=== PATIENT | male | born 1950 | race Caucasian/White ===

== ENCOUNTER 2017-01-28 02:47 | Inpatient (IN) | payer OTHER ==
--- NOTE | ~2017-01-28 | CN ---
Consultation Report [facility] [address] [place]. [address] NAME: HEATHER MCNEAL : 54 STATUS : ADM IN [facility]#: [id number] AGE: 66 ADM/REG DATE : 01/28/17 MR#: [id number] REPORT SERV DATE: 01/28/17 DICTATED BY: DAYA RONQUILLO DATE: 01/28/17 REPORT STATUS : Draft TRANSCRIBED BY: MODL DATE: 01/28/17 CONSULTATION DATE OF CONSULTATION: 01/28/2017 REASON FOR CONSULTATION: Hydronephrosis. HISTORY OF PRESENT ILLNESS: Mr. Mcneal is a 66-year-old male, admitted with GI bleeding. He has a history of ulcers, which have bled and were have been treated with endoscopy in the past. Apparently, the source of this is NSAID use. On a CT scan performed at the outside hospital, he has significant right hydronephrosis. He denies right flank pain. He denies hematuria. He does not smoke. He has no family history of genitourinary malignancy. His renal function was normal at 0.9 for his creatinine. Apparently, he has a very significant pulmonary and cardiac history, which makes any sort of procedure or even getting a CT scan a life-threatening event. I have been asked to consult on his hydronephrosis. PAST MEDICAL HISTORY: Hypertension, end-stage COPD, history of gastrointestinal bleed, colonic polyps, diverticulosis, diverticulitis, basal cell carcinoma, coronary artery disease, Schatzki ring, color blindness. PAST SURGICAL HISTORY: Nasal reconstruction, right hand surgery, multiple GI endoscopies. FAMILY HISTORY: No genitourinary history. SOCIAL HISTORY: He drinks some. Does not currently smoke. He is a past smoker. No illegal drugs. ALLERGIES: SULFA. MEDICATIONS: Reviewed and listed in the chart. REVIEW OF SYSTEMS: A 12-point review of systems was performed. Pertinent positives are listed in the HPI. PHYSICAL EXAMINATION: VITAL SIGNS: Temperature 98.2, pulse is in the 80s, blood pressure is 161/90, saturating 91% on room air. GENERAL: He is in no acute distress. HEENT: His head is normocephalic and atraumatic. LUNGS: Breathing is nonlabored. He is not in respiratory distress. CARDIAC: Pulse is regular in rate and rhythm. ABDOMEN: Soft, nontender, nondistended. He has no CVA tenderness. : He has normal external genitalia. EXTREMITIES: No cyanosis or edema. Consultation Report [address] [facility] [place]. [address] NAME: HEATHER MCNEAL : 54 STATUS : ADM IN PAT#: [id number] AGE: 66 ADM/REG DATE : 01/28/17 MR#: [id number] REPORT SERV DATE: 01/28/17 DICTATED BY: DAYA RONQUILLO DATE: 01/28/17 REPORT STATUS : Draft TRANSCRIBED BY: MODL DATE: 01/28/17 NEUROLOGIC: He is alert and oriented x3. LABORATORY DATA: White count 5.6, hemoglobin is 12.5. Creatinine is 0.8. IMAGING: CT scan performed at the outside hospital has the report available, there is right hydronephrosis. ASSESSMENT AND PLAN: Mr. Mcneal has asymptomatic severe right hydronephrosis and preserved renal function. Apparently, per his report, he is unfit to undergo any sort of procedure. Repeating CT scan is also associated with near life-threatening cardiopulmonary collapse. At this point, we do not need to do anything urgent as he certainly has normal renal function and is not infected. Recommend trying to get the actual CT disk from the outside hospital, so we can have it loaded up to our system. Ultimately, I will follow up with him as an outpatient upon discharge to determine if this is something worth treatment. Unfortunately, given his comorbidities, I think treatment will probably just be conservative management. Please call if further questions. MARLY/YON Daya Ronquillo MD / [id number] CC: Daya Ronquillo MD
--- NOTE | ~2017-01-28 | DS ---
Discharge Summary [address] [place]. [address] NAME: HEATHER CHARLES : 54 STATUS : DIS IN PAT#: [id number] AGE: 66 ADM/REG DATE : 01/28/17 MR#: [id number] REPORT SERV DATE: 01/29/17 DICTATED BY: MIN CERDA DATE: 01/29/17 REPORT STATUS : Draft TRANSCRIBED BY: MODL DATE: 01/29/17 ADMISSION DATE: 01/28/2017 DISCHARGE DATE: 01/29/2017 PROCEDURES DONE: 1. 01/28/2017, chest x-ray: Mild bibasilar atelectasis. Otherwise, no acute cardiopulmonary identified. 2. 01/29/2016, operative report by Dr. Infante: Upper GI endoscopy. Findings: Esophagus was normal. Patchy moderate inflammation characterized by erosions and erythema was found in the entire examined stomach. Biopsies were taken with cold forceps for histology. Verification of patient identification was done. Estimated blood loss was minimal. Cardiac and gastric fundus were normal and retroflexion. Patchy mild inflammation characterized by erythema was found in the duodenal bulb. Examination of the duodenum was normal. Impressions: Normal esophagus. Gastritis. Biopsied. Duodenitis. 3. Operative report by Dr. Gee, procedure done colonoscopy. Findings: Perianal exam was abnormal. Findings include skin tags. Internal hemorrhoids were found during retroflexion that were medium size. Diverticula were found in the sigmoid colon and in the descending colon. Terminal ileum appeared normal. Two sessile polyps were found in the sigmoid colon. Polyps were small in size. Polyps were removed with cold biopsy forceps. Resection and retrieval were complete. Impressions: Preanal skin tags found in the perianal exam. Internal hemorrhoids. Diverticulosis in the sigmoid and in the descending colon. Examined portion of the ileum was normal. Two small polyps in the sigmoid colon. Resected and retrieved. Repeat colonoscopy for surveillance based on pathology results. CONSULTS: By nurse practitionerLeo. REASON FOR ADMISSION: GI bleed. HISTORY OF PRESENT ILLNESS: 66-year-old white male with past medical history of multiple admissions for GI bleed secondary to duodenal ulcers, COPD, hypertension, coronary artery disease with prior DE, active tobacco use, active alcohol use, diverticulosis, presenting with GI bleed. The patient was admitted for further evaluation of GI bleed. The patient also was seen by Urology secondary to severe right hydronephrosis. GI did a colonoscopy and an EGD, which was normal. Biopsies were taken in the stomach. The patient will have to follow up with Dr. Manzo for six week followup. In addition, the patient does have a right sided hydronephrosis. Urology was consulted. The patient does have a history of cardiopulmonary arrest while on sedation. The patient is not a medical candidate for any procedures at this time and the patient is advised to follow up as an outpatient. The patient is fully aware that he is a high risk for any surgical procedures including a bypass which is needed. Therefore, the patient is fully aware that his limitation of any intervention is only in life and situations. DISPOSITION: The patient is feeling fine. No complaints. Discharge Summary [address] [place]. [address] NAME: HEATHER CHARLES : 54 STATUS : DIS IN PAT#: [id number] AGE: 66 ADM/REG DATE : 01/28/17 MR#: [id number] REPORT SERV DATE: 01/29/17 DICTATED BY: MIN CERDA DATE: 01/29/17 REPORT STATUS : Draft TRANSCRIBED BY: YON DATE: 01/29/17 ACTIVITIES: As tolerated. DIET: Cardiac. INSTRUCTION UPON DISCHARGE: 1. The patient to follow up with Dr. Manzo in 6 weeks. 2. The patient to follow up with PMD within two weeks' time. MEDICATION UPON DISCHARGE: 1. Protonix 40 mg p.o. daily. 2. Isosorbide mononitrate 10 mg p.o. b.i.d. 3. Lisinopril 20 mg p.o. b.i.d. 4. Centrum one tab daily. 5. [place]-3 1000 mg p.o. daily. 6. Albuterol metered-dose inhaler 1 puff p.r.n. 7. Aspirin 81 mg p.o. daily. 8. Ventolin inhaler two puffs b.i.d. 9. Nitroglycerin sublingual. DIAGNOSES UPON DISCHARGE: 1. Melena, hematochezia secondary to unknown etiology. EGD and colonoscopy were negative for active bleed. 2. History of duodenal ulcer. 3. Anemia secondary to history of duodenal ulcer. 4. Right hydronephrosis. 5. Chronic obstructive pulmonary disease. 6. Coronary artery disease. 7. Hypertension. FBJ/MODL Min Cerda MD / [id number] CC: MD Tiarra Thomas Angela C
--- NOTE | ~2017-01-28 | EGD ---
EGD REPORT [facility] [address] [place]. [address] NAME: HEATHER MCNEAL MIGUEL ANGEL : 54 STATUS : ADM IN PAT#: [id number] AGE: 66 ADM/REG DATE : 01/28/17 MR#: [id number] REPORT SERV DATE: 01/29/17 DICTATED BY: JUDSON GEE DATE: 01/29/17 REPORT STATUS : Draft TRANSCRIBED BY: [facility] DATE: 01/29/17 Endoscopy Center Patient Name: Heather Mcneal Date of : 1950 Attending MD: JUDSON GEE MD Procedure Date No Time: 01/29/2017 Procedure: Colonoscopy Indications: Melena (with negative EGD) Referring MD: Shannan Mayen MD Medicines: See the Anesthesia note for documentation of the administered medications Complications: No immediate complications. Procedure: Pre-Anesthesia Assessment: - ASA Grade Assessment: IV - A patient with severe systemic disease that is a constant threat to life. After I obtained informed consent, the scope was passed under direct vision. Throughout the procedure, the patient's blood pressure, pulse, and oxygen saturations were monitored continuously. The PCF [id number] was introduced through the anus and advanced to the terminal ileum, with identification of the appendiceal orifice and IC valve. The colonoscopy was performed without difficulty. The patient tolerated the procedure well. The quality of the bowel preparation was adequate. NO BLOOD IN COLON. MIN SCATTERED BROWN FECAL DEBRIS. Findings: The perianal exam was abnormal. Findings include skin tags. Internal hemorrhoids were found during retroflexion and were medium-sized. Diverticula were found in the sigmoid colon and in the descending colon. The terminal ileum appeared normal. Two sessile polyps were found in the sigmoid colon. The polyps were small in size. These polyps were removed with a cold biopsy forceps. Resection and retrieval were complete. Impression: - Perianal skin tags found on perianal exam. - Internal hemorrhoids. - Diverticulosis in the sigmoid colon and in the descending colon. - The examined portion of the ileum was normal. - Two small polyps in the sigmoid colon. Resected and retrieved. Recommendation: - Repeat colonoscopy for surveillance based on pathology EGD REPORT [address] [address] NAME: HEATHER MCNEAL : 54 STATUS : ADM IN [facility]#: [id number] AGE: 66 ADM/REG DATE : 01/28/17 MR#: [id number] REPORT SERV DATE: 01/29/17 DICTATED BY: JUDSON GEE DATE: 01/29/17 REPORT STATUS : Draft TRANSCRIBED BY: [employer] DATE: 01/29/17 results. - [facility]. - Follow up with Dr Schreiber in 6 weeks. Will sign off. Procedure Code(s): --- Professional --- 12716, Colonoscopy, flexible, proximal to splenic flexure; with biopsy, single or multiple Diagnosis Code(s): --- Professional --- K64.4, Residual hemorrhoidal skin tags K64.8, Other hemorrhoids K57.30, Diverticulosis of large intestine without perforation or abscess without bleeding D12.5, Benign neoplasm of sigmoid colon K92.1, Melena CPT copyright 2013 [employer]. All rights reserved. The codes documented in this report are preliminary and upon medical insurance coder review may be revised to meet current compliance requirements. Judson Gee MD JUDSON GEE MD 01/29/2017 8:19 AM This report has been signed electronically. Number of Addenda: 0 Note Initiated On: 01/29/2017 7:37 AM Scope Withdrawal Time 0 hours 12 minutes 26 seconds
--- NOTE | ~2017-01-28 | HP ---
History And Physical [id number] [facility] [place]. [address] NAME: HEATHER MCNEAL : 54 STATUS : ADM IN [facility]#: [id number] AGE: 66 ADM/REG DATE : 01/28/17 MR#: [id number] REPORT SERV DATE: 01/28/17 DICTATED BY: SAI NIETO DATE: 01/28/17 REPORT STATUS : Draft TRANSCRIBED BY: MODCarlos DATE: 01/28/17 DATE OF ADMISSION: 01/28/2017 For an admission, transferred from [facility] Emergency Department. CHIEF COMPLAINT: GI bleed. HISTORY OF PRESENT ILLNESS: Mr. Mcneal is a 66-year-old gentleman with a prior history of multiple admissions for GI bleed secondary to duodenal ulcers as well as history of diverticulosis, who presented to [facility] Emergency Department earlier on the evening of the with a three-day history of melena and hematochezia. The patient states he first started to notice some dark-colored stools on Tuesday. On Tuesday, he noted oz-black stools and on , his stools and changed color to straight maroon-colored bloody bowel movements. The patient endorses some right lower quadrant abdominal pain with associated nausea. The patient also states that he has been feeling weak and dizzy for the past few days. He does drink alcohol on a daily basis, approximately three beers daily, as well as takes an aspirin 81 mg daily, but denies any NSAID use, BC Powder or Goody Powder use, recent troubles with acid reflux or heartburn, or any other blood thinners. The patient also has multiple complaints including some subjective fevers and chills over the past week, as well as intermittent episodes of substernal chest pain as well as shortness of breath and dyspnea on exertion. The patient has had two admissions in the last few years for GI bleed. All thought to be secondary to a bleeding duodenal ulcer, most recent being in 2014 for admission here, which required approximately three units of packed red blood cell transfusion. Initial evaluation at [facility] Emergency Department noted for a hemoglobin 14.5. Vital signs were hemodynamically stable. CT of the abdomen and pelvis was checked, which showed diverticulosis without any evidence of diverticulitis, but did show severe right-sided hydronephrosis. The patient was started on Protonix, given Levaquin and Flagyl as well as IV fluids and transferred to [facility] for higher level of care. COMPREHENSIVE REVIEW OF SYSTEMS: Otherwise negative, unless listed in history of present illness. PAST MEDICAL HISTORY: 1. COPD, not on any home oxygen. 2. Hypertension. 3. History of coronary artery disease with prior myocardial infarction. 4. Active tobacco abuse. 5. Active alcohol abuse. 6. Prior history of GI bleed secondary to duodenal ulcer. 7. Diverticulosis. History And Physical [address] [address] NAME: HEATHER MCNEAL : [birth year] STATUS : ADM IN PAT#: [id number] AGE: 66 ADM/REG DATE : 01/28/17 MR#: [id number] REPORT SERV DATE: 01/28/17 DICTATED BY: SAI NIETO DATE: 01/28/17 REPORT STATUS : Draft TRANSCRIBED BY: YON DATE: 01/28/17 SURGICAL HISTORY: 1. Right hand surgery. 2. Basal cell carcinoma of the nose, resection and nasal reconstruction. ALLERGIES: SULFA DRUGS. HOME MEDICATIONS: 1. Ventolin one puff inhalation b.i.d. 2. Proventil one nebulization p.r.n. 3. Aspirin 81 mg daily. 4. Isosorbide mononitrate 10 mg b.i.d. 5. Lisinopril 20 mg b.i.d. 6. Centrum multivitamin one tab daily. 7. Nitroglycerin 0.4 mg sublingual p.r.n. 8. [place]-3 fatty acid. 9. Fish oil 1 g daily. SOCIAL HISTORY: He does smoke about a half pack per day. He drinks about three beers daily. Denies any illicits. FAMILY MEDICAL HISTORY: Mother with history of stomach cancer. Father with diabetes, hypertension, coronary artery disease. Siblings, otherwise healthy. LABS AND IMAGING: All obtained from [facility] Emergency Department: 1. White count 8.3, hemoglobin is 14.5, hematocrit is 42.1, platelets 192. INR 1.0. 2. Sodium is 136, potassium 4.8, chloride 98, carbon dioxide 27, BUN 24, creatinine 0.83, glucose is 145, calcium is 10.1, protein is 7.3. Albumin is 4.4, bilirubin is 0.5, ALT is 18, AST 26. 3. Lipase is 28. 4. Lactic acid is 1.0. 5. CT scan of the abdomen and pelvis shows severe right-sided hydronephrosis at the level of the UPJ, as well as diverticulosis, but otherwise no acute abdominopelvic pathology. PHYSICAL EXAMINATION: VITAL SIGNS: Temperature is 98.2 degrees Fahrenheit, pulse is 85, respirations 18, saturating 91% on room air, blood pressure is 161/90. GENERAL: The patient is awake, alert, and in no acute distress. Resting comfortably in bed. He is a chronically ill-appearing, elderly male who appears older than stated age. HEENT: Atraumatic and normocephalic. Moist mucous membranes. Pupils are equal, round, and reactive to light and accommodation. Extraocular eye movements are intact. No scleral icterus. NECK: No jugular venous distention. No carotid bruits. CARDIAC: Regular rate and rhythm. No murmurs or gallops. Normal S1, S2. LUNGS: Clear to auscultation bilaterally. No wheezes, rhonchi, or crackles. ABDOMEN: Soft, nontender, nondistended, with good bowel sounds. No rebound, guarding, or History And Physical [address] [address] NAME: HEATHER MCNEAL : 54 STATUS : ADM IN [facility]#: [id number] AGE: 66 ADM/REG DATE : 01/28/17 MR#: [id number] REPORT SERV DATE: 01/28/17 DICTATED BY: SAI NIETO DATE: 01/28/17 REPORT STATUS : Draft TRANSCRIBED BY: MOD DATE: 01/28/17 rigidity. EXTREMITIES: Warm and well perfused. No cyanosis, clubbing, or edema. SKIN: Warm and dry. PSYCH: Affect is appropriate. NEURO: Alert and oriented x3. Cranial nerves 2 through 12 are grossly intact. Speech is normal. Gait is not assessed. ASSESSMENT AND PLAN: Mr. Mcneal 66-year-old gentleman with a prior history of peptic ulcer disease, specifically duodenal ulcers who presents with a three-day history of melena which has since progressed to oz hematochezia and maroon-colored stools. PROBLEM LIST: 1. GI bleed. 2. Severe right-sided hydronephrosis. 3. COPD. 4. Chest pain. 5. Shortness of breath. 6. Hypertension. 7. History of GI bleed with a history of duodenal ulcers. PLAN: 1. GI bleed. The patient's description of melena with conversion to oz hematochezia, maroon-colored stools concerning for upper GI source, which is likely brisk in nature consistent with duodenal source. The patient does have a history of diverticulosis as well. The patient's initial hemoglobin was 14.5. We will check q.6 hours hemoglobin and hematocrits. We will give additional 40 mg of IV Protonix and place on a drip. We will consult Gastroenterology, Dr. Schreiber, he saw the patient last time. We will transfuse for hemoglobin less than 7. 2. Right-sided hydronephrosis. We do not have any prior imaging to compare to. We will consult Urology for assistance. The patient's creatinine currently is within baseline. 3. COPD. The patient does have some very mild wheezing on exam here concerning for untreated COPD, although he is saturating well on room air. We will check a chest x- ray, place him on some DuoNebs. 4. Coronary artery disease with reports of chest pain. We will check a troponin level as well as an EKG. 5. Shortness of breath. Checking a chest x-ray. The patient is currently saturating well on room air. 6. DVT prophylaxis. TEDs and SCDs. CODE STATUS: The patient wishes to be full code. KHRIS/YON Sai Nieto MD History And Physical [address] [address] NAME: HEATHER MCNEAL : [birth year] STATUS : ADM IN [facility]#: [id number] AGE: 66 ADM/REG DATE : 01/28/17 MR#: [id number] REPORT SERV DATE: 01/28/17 DICTATED BY: SAI NIETO DATE: 01/28/17 REPORT STATUS : Draft TRANSCRIBED BY: YON DATE: 01/28/17 / [id number] CC: MD Dr. Gloria Thomas
--- NOTE | ~2017-01-28 | EGD ---
EGD REPORT [facility] [address] [address] NAME: HEATHER MCNEAL MIGUEL ANGEL : 54 STATUS : ADM IN PAT#: [id number] AGE: 66 ADM/REG DATE : 01/28/17 MR#: [id number] REPORT SERV DATE: 01/28/17 DICTATED BY: OMKAR WEI DATE: 01/28/17 REPORT STATUS : Draft TRANSCRIBED BY: [employer] DATE: 01/28/17 Endoscopy Center Patient Name: Heather Mcneal Date of : 1950 Attending MD: OMKAR WEI, Procedure Date No Time: 01/28/2017 Procedure: Upper GI endoscopy Indications: Melena Referring MD: Shannan Mayen MD Medicines: Monitored Anesthesia Care Complications: No immediate complications. Estimated blood loss: None. Procedure: Pre-Anesthesia Assessment: - ASA Grade Assessment: IV - A patient with severe systemic disease that is a constant threat to life. After obtaining informed consent, the endoscope was passed under direct vision. Throughout the procedure, the patient's blood pressure, pulse, and oxygen saturations were monitored continuously. The GIF H190 [id number] was introduced through the mouth, and advanced to the second part of duodenum. The upper GI endoscopy was accomplished without difficulty. The patient tolerated the procedure well. Findings: The esophagus was normal. Patchy moderate inflammation characterized by erosions and erythema was found in the entire examined stomach. Biopsies were taken with a cold forceps for histology. Verification of patient identification for the specimen was done. Estimated blood loss was minimal. The cardia and gastric fundus were normal on retroflexion. Patchy mild inflammation characterized by erythema was found in the duodenal bulb. The exam of the duodenum was otherwise normal. Impression: - Normal esophagus. - Gastritis. Biopsied. - Duodenitis. Recommendation: - Patient has a contact number available for emergencies. The signs and symptoms of potential delayed complications were discussed with the patient. Return to normal activities tomorrow. Written discharge instructions were provided to the patient. - Clear liquid diet. - Continue present medications. EGD REPORT [address] [address] NAME: HEATHER MCNEAL : 54 STATUS : ADM IN [facility]#: [id number] AGE: 66 ADM/REG DATE : 01/28/17 MR#: [id number] REPORT SERV DATE: 01/28/17 DICTATED BY: OMKAR WEI DATE: 01/28/17 REPORT STATUS : Draft TRANSCRIBED BY: [employer] DATE: 01/28/17 - Perform a colonoscopy tomorrow. Procedure Code(s): --- Professional --- 71505, Esophagogastroduodenoscopy, flexible, transoral; with biopsy, single or multiple Diagnosis Code(s): --- Professional --- K29.70, Gastritis, unspecified, without bleeding K29.80, Duodenitis without bleeding K92.1, Melena CPT copyright 2013 [employer]. All rights reserved. The codes documented in this report are preliminary and upon inbound telemarketer review may be revised to meet current compliance requirements. OMKAR WEI, 01/28/2017 11:59 AM Number of Addenda: 0 Note Initiated On: 01/28/2017 11:02 AM Scope Withdrawal Time 0 hours 0 minutes 0 seconds
--- NOTE | ~2017-01-28 | CN ---
Consultation Report [facility] [address] [place]. [address] NAME: HEATHER MCNEAL : 54 STATUS : ADM IN PAT#: [id number] AGE: 66 ADM/REG DATE : 01/28/17 MR#: [id number] REPORT SERV DATE: 01/28/17 DICTATED BY: SHANNON VAGRAS DATE: 01/28/17 REPORT STATUS : Draft TRANSCRIBED BY: MODL DATE: 01/28/17 GI CONSULTATION DATE OF CONSULTATION: 01/28/2017 REASON FOR CONSULTATION: Evaluation and management for upper GI bleeding. HISTORY OF PRESENT ILLNESS: Mr. Mcneal is a 66-year-old male patient, who has been seen by us in the past during a hospitalization in August 2015. He was admitted then for upper GI bleed, same case at this time. He was sent from [facility] for complaints of melanotic stools since Tuesday. He has some mild abdominal discomfort. No nausea or vomiting. He denies any NSAID usage. Positive for smoking, half a pack per day as well as positive for daily alcohol use in the form of beer. He drinks around three beers per night. He states that at present, he has not had any dizziness, chest pain, shortness of breath. No nausea, vomiting, hematemesis, dysphagia, or odynophagia. His hemoglobin on admission was 12.5. His BUN is 21, creatinine is 0.8. In 2014, when we performed his upper endoscopy, findings on that exam showed a mild Schatzki ring, hiatal hernia, one duodenal ulcer with clean base, as well as one duodenal ulcer with oozing blood that was injected and treated with thermal therapy. He was subsequently discharged in stable condition, and we have not seen him since then. He also has a history of GI bleed in 2009 that he states he received 5 units of blood for as well as endoscopic intervention by Dr. Hitchcock. His last colonoscopy by his report was in 2012. He had polyps that appeared to be hyperplastic by his report, removed. He had a chest x-ray done on admission that showed mild bibasilar atelectasis. Otherwise normal. I have discussed with the patient, he has been n.p.o., he has been maintained on a Protonix drip. We will plan to pursue upper endoscopy today. I discussed the risks, benefits, alternatives, and complications with him to include, but not limited to risk of bleeding, perforation, infection, reaction to medications, as well as cardiac and pulmonary side effects. He is agreeable to proceed, but he does indicate that in the past, he has had issues with anesthesia. He did find the last time with his EGD here and I have also reiterated him to discuss his concerns with anesthesia prior to endoscopy. PAST MEDICAL HISTORY: Hypertension, COPD, GI bleed secondary to duodenal ulcers in 2009 and 2014, colon polyps, diverticulosis, diverticulitis, basal cell carcinoma, [place], Schatzki ring, color blindness, tobacco abuse, and alcohol abuse. PAST SURGICAL HISTORY: Nasal reconstruction and right hand surgery. FAMILY HISTORY: Noncontributory from a GI standpoint. SOCIAL HISTORY: Positive tobacco. Smokes one-half pack per day. Positive for alcohol, at least three beers per night. Negative for illicit drugs. ALLERGIES: SULFA. HOME MEDICATIONS: Albuterol, Proventil, aspirin, Monoket, Proventil, Centrum, Nitrostat, and Consultation Report [address] [place]. [address] NAME: HEATHER MCNEAL : 54 STATUS : ADM IN [facility]#: [id number] AGE: 66 ADM/REG DATE : 01/28/17 MR#: [id number] REPORT SERV DATE: 01/28/17 DICTATED BY: SHANNON VARGAS DATE: 01/28/17 REPORT STATUS : Draft TRANSCRIBED BY: YON DATE: 01/28/17 [employer]. The patient denies any NSAIDs since his admission in 2014. REVIEW OF SYSTEMS: A 10-point review of systems was obtained. Pertinent positives are addressed in the history of present illness. PHYSICAL EXAMINATION: VITAL SIGNS: Temperature is 98.2, pulse 76, respirations is 18, and blood pressure 161/98. NEUROLOGIC: Reveals an alert male, sitting up in bed. No focal deficits. GENERAL: Cooperative, in no apparent distress. Awake, alert and oriented x3. HEAD, EARS, EYES, NOSE, AND THROAT: Anicteric. Pupils are equal, round, and reactive to light and accommodation. Normocephalic and atraumatic. NECK: No JVD. No palpable nodes. LUNGS: Coarse with mild expiratory wheezing in the bilateral upper lobes. Normal respiratory effort exhibited. CARDIOVASCULAR SYSTEM: Regular rate and rhythm. ABDOMEN: Soft and nondistended, very minimal tenderness to the right lower quadrant. He has active bowel sounds. No organomegaly appreciated. No rebound or guarding elicited on exam. EXTREMITIES: No edema. Normal distal pulses. SKIN: Warm, dry, and intact. PERTINENT LABORATORY DATA: Sodium 140, potassium 4.2, BUN is 21, and creatinine 0.8. White count 5.6, hemoglobin 12.5, hematocrit is 36.2, and platelet count 156. INR is 1.2. ASSESSMENT: 1. Melena since 01/25/2017. 2. Upper gastrointestinal bleed with a history of duodenal ulcers and bleeding in 2009 and 2014. 3. Hemoccult-positive stools. 4. Chronic obstructive pulmonary disease with tobacco abuse. 5. History of alcohol use daily. PLAN: 1. Continue proton pump inhibitor drip. 2. EGD today with Dr. Infante. 3. Check H. pylori serology. 4. Check an H and H prior to endoscopy. Transfuse if needed. We will follow. KELSEY/YON [place] DMITRI[facility] [place] Consultation Report [address] [address] NAME: HEATHER MCNEAL : 54 STATUS : ADM IN [facility]#: [id number] AGE: 66 ADM/REG DATE : 01/28/17 MR#: [id number] REPORT SERV DATE: 01/28/17 DICTATED BY: SHANNON VARGAS DATE: 01/28/17 REPORT STATUS : Draft TRANSCRIBED BY: MODL DATE: 01/28/17 / [id number] CC: Min Fitzpatrick MD
[~2017-01-28 02:47] MED LIST: ASAB PO; CENTRUM TAB1 TAB PO; HALF81 PO; PRIN20 PO; PROMEGA PO; PROTONIX PO; PROVHFA INH; SPIRIVA INH
[2017-01-28] MEDS ORDERED: ALBUTEROL INH (03:36)
[2017-01-28] MEDS ORDERED: VENTOLIN HFA INH (03:38)
[2017-01-28] MEDS ORDERED: MONOKET PO (03:43)
[2017-01-28] MEDS ORDERED: NITROSTAT0.4 MG SL (03:46)
[2017-01-28 06:11] LABS: BASOPHILS 0.5 %; BASOPHILS ABSOLUTE 0.03 10/3/uL (0.0-0.16); EOSINOPHILS 2.2 %; EOSINOPHILS ABSOLUTE 0.12 10/3/uL (0.0-0.53); IMMATURE GRANULOCYTES 0.2 %; IMMATURE GRANULOCYTES ABSOLUTE 0.01 10/3/uL (0.0-0.11); LYMPHOCYTES 15.4 %; LYMPHOCYTES ABSOLUTE 0.86 10/3/uL (0.67-4.30); MEAN CORPUS HGB CONC 34.5 g/dL (32.0-36.0); MEAN CORPUSCULAR HEMOGLOB 32.1 pg (26.0-34.0); MEAN PLATELET VOLUME 9.7 fL (9.2-13.0); MONOCYTES 9.2 %; MONOCYTES ABSOLUTE 0.51 10/3/uL (0.21-1.20); NEUTROPHILS 72.5 %; NEUTROPHILS ABSOLUTE 4.04 10/3/uL (2.02-8.40); PLATELET COUNT 156 10/3/uL (150-400); RBC DISTRIBUTION WIDTH 12.5 % (12.0-16.0); WHITE BLOOD CELLS 5.6 10/3/uL (4.5-10.5)
[2017-01-28 06:12] LABS: HEMATOCRIT 36.2 % (40.0-51.0); HEMOGLOBIN 12.5 g/dL (13.6-17.8); MANUAL DIFF NO %; MEAN CORPUSCULAR VOLUME 93.1 fL (80-100); RED CELL COUNT 3.89 10/6/uL (4.7-6.1)
[2017-01-28 06:16] LABS: INTERNATIONAL NORMAL RATI 1.2 UNITS (-); PARTIAL THROMBO TIME 29.2 SEC (22.5-37.2); PROTIME (NOT ORD) 14.6 SEC (12.0-14.5)
[2017-01-28 06:26] LABS: CALCIUM, SERUM 8.3 MG/DL (8.5-10.4); CHLORIDE, SERUM 104 MMOL/L (96-112); CO2 (CARBON DIOXIDE) 27 MMOL/L (24-34); GFR AFRICAN AMERICAN 109 ML/MIN (>=60); GFR NON AFRICAN AMERICAN 94 ML/MIN (>=60); GLUCOSE, SERUM 83 MG/DL (60-99); SODIUM, SERUM 140 MMOL/L (135-148); TROPONIN I <0.02 NG/ML (<0.05)
[2017-01-28 06:27] LABS: BUN (BLOOD UREA NITROGEN) 21 MG/DL (6-23); POTASSIUM, SERUM 4.2 MMOL/L (3.5-5.3)
[2017-01-28 10:11] LABS: HEMATOCRIT 37.4 % (40.0-51.0)
[2017-01-28 13:43] LABS: HEMATOCRIT 37.2 % (40.0-51.0); HEMOGLOBIN 12.7 g/dL (13.6-17.8)
[2017-01-28 18:53] LABS: HEMATOCRIT 35.1 % (40.0-51.0)
[2017-01-29 01:23] LABS: HEMATOCRIT 38.4 % (40.0-51.0)
[2017-01-29 06:28] LABS: INTERNATIONAL NORMAL RATI 1.1 UNITS (-); PARTIAL THROMBO TIME 32.6 SEC (22.5-37.2); PROTIME (NOT ORD) 14.3 SEC (12.0-14.5)
[2017-01-29 06:30] LABS: BASOPHILS 0.4 %; BASOPHILS ABSOLUTE 0.02 10/3/uL (0.0-0.16); EOSINOPHILS 4.2 %; EOSINOPHILS ABSOLUTE 0.19 10/3/uL (0.0-0.53); HEMATOCRIT 35.1 % (40.0-51.0); HEMOGLOBIN 12.4 g/dL (13.6-17.8); IMMATURE GRANULOCYTES 0.2 %; IMMATURE GRANULOCYTES ABSOLUTE 0.01 10/3/uL (0.0-0.11); LYMPHOCYTES 19.7 %; LYMPHOCYTES ABSOLUTE 0.89 10/3/uL (0.67-4.30); MEAN CORPUS HGB CONC 35.3 g/dL (32.0-36.0); MEAN CORPUSCULAR HEMOGLOB 32.7 pg (26.0-34.0); MEAN CORPUSCULAR VOLUME 92.6 fL (80-100); MEAN PLATELET VOLUME 10.3 fL (9.2-13.0); MONOCYTES 13.1 %; MONOCYTES ABSOLUTE 0.59 10/3/uL (0.21-1.20); NEUTROPHILS 62.4 %; NEUTROPHILS ABSOLUTE 2.81 10/3/uL (2.02-8.40); PLATELET COUNT 161 10/3/uL (150-400); RBC DISTRIBUTION WIDTH 12.5 % (12.0-16.0); RED CELL COUNT 3.79 10/6/uL (4.7-6.1); WHITE BLOOD CELLS 4.5 10/3/uL (4.5-10.5)
[2017-01-29 06:38] LABS: MANUAL DIFF NO %
[2017-01-29 06:42] LABS: A/G RATIO 1.3 (0.7-1.9); ALBUMIN 3.5 G/DL (3.5-5.0); ALKALINE PHOSPHATASE 71 U/L (45-117); BUN (BLOOD UREA NITROGEN) 13 MG/DL (6-23); CALCIUM, SERUM 8.6 MG/DL (8.5-10.4); CHLORIDE, SERUM 100 MMOL/L (96-112); CO2 (CARBON DIOXIDE) 32 MMOL/L (24-34); CREATININE 0.72 MG/DL (0.70-1.30); GFR AFRICAN AMERICAN 114 ML/MIN (>=60); GFR NON AFRICAN AMERICAN 99 ML/MIN (>=60); GLOBULIN 2.8 G/DL (2.5-4.1); GLUCOSE, SERUM 78 MG/DL (60-99); PHOSPHORUS, SERUM 3.2 MG/DL (2.5-4.5); SGOT(AST) 24 U/L (5-40); SGPT(ALT) 22 U/L (5-65); SODIUM, SERUM 137 MMOL/L (135-148); TOTAL BILIRUBIN 0.5 MG/DL (0-1.2); TOTAL PROTEIN 6.3 G/DL (6.0-8.5)
[2017-01-29] MEDS ORDERED: PROTONIX PO (19:17)
== END 2017-01-29 20:41 | disposition home or self-care (01) | DRG 378 ==
LOC: 2SO 02:47
PROVIDERS: Hospitalist; Internal Medicine; Internal Medicine Gastroenterology; Nurse Practitioner Family
PROC: 0DB68ZX Excision of Stomach, Via Natural or Artificial Opening Endoscopic, Diagnostic (ICD-10-PCS; principal; 2017-01-28 11:53)
PROC: 0DBN8ZX Excision of Sigmoid Colon, Via Natural or Artificial Opening Endoscopic, Diagnostic (ICD-10-PCS; 2017-01-29)
DX: K92.2 Gastrointestinal hemorrhage, unspecified (principal); N13.30 Unspecified hydronephrosis; I71.6 Thoracoabdominal aortic aneurysm, without rupture; Z99.81 Dependence on supplemental oxygen; K22.2 Esophageal obstruction; J98.11 Atelectasis; D50.9 Iron deficiency anemia, unspecified; I10 Essential (primary) hypertension; F17.210 Nicotine dependence, cigarettes, uncomplicated; J44.9 Chronic obstructive pulmonary disease, unspecified; F10.20 Alcohol dependence, uncomplicated; I25.10 Atherosclerotic heart disease of native coronary artery without angina pectoris; D12.5 Benign neoplasm of sigmoid colon; H53.50 Unspecified color vision deficiencies; D12.4 Benign neoplasm of descending colon; K64.4 Residual hemorrhoidal skin tags; K57.30 Diverticulosis of large intestine without perforation or abscess without bleeding; K64.8 Other hemorrhoids; K29.70 Gastritis, unspecified, without bleeding; K29.80 Duodenitis without bleeding; I25.2 Old myocardial infarction; Z87.11 Personal history of peptic ulcer disease
CPT/HCPCS: 36415; 71010; 80048; 80053; 83735; 84100; 84484; 85014; 85018; 85025; 85610; 85730; 86677; 86850; 86900; 86901; 88305; 93005; A9270-GY; C9113; J2405